=== PATIENT | female | born 1985 | race American Indian/Alaskan Native ===

== ENCOUNTER 2017-10-29 20:51 | Emergency (ER) | payer MEDICAID, OTHER ==
[2017-10-29 20:52] VITALS: BMI 25.4
[2017-10-29] MEDS ORDERED: Sodium Chloride 0.9% 1,000 ML IV ONE (21:19)
--- NOTE | 2017-10-29 22:46 | C.PDOC ---
History Of Present Illness <Soo Ventura - Last Filed: 10/29/17 22:55> <Nataliia Martinez - Last Filed: 10/29/17 23:53> 31 yo female c/o headache and facial pain for 3 days. Pain is described as pressure around her eyes and radiating to her ears. Pt states that two days ago she was evaluated in [facility] and diagnosed with sinusitis. She was treated with fioricet and Augmentin but the symptoms persist prompting ED visit. Notes she had a fever two days ago, none has returned. (+) photophobia. Admits to h/o migraines, last migraine three years ago. Denies weakness, changes in sensation , vomiting, neck pain, URI symptoms or rash. (Soo Ventura) History Per: Patient History/Exam Limitations: no limitations Onset/Duration Of Symptoms: Days Current Symptoms Are (Timing): Still Present <Soo Ventura - Last Filed: 10/29/17 22:55> <Nataliia Martinez - Last Filed: 10/29/17 23:53> Time Seen by Provider: 10/29/17 21:12 Chief Complaint (Nursing): ENT Problem Past Medical History - Medical History PMH: Gastritis, HTN Family History: States: Hypertension - Social History Hx Tobacco Use: Yes Hx Alcohol Use: Yes Hx Substance Use: No - Immunization History Hx Tetanus Toxoid Vaccination: No Hx Influenza Vaccination: No Hx Pneumococcal Vaccination: No <Soo Ventura - Last Filed: 10/29/17 22:55> Vital Signs: Last Vital Signs Temp 99.8 F H 10/29/17 21:04 Pulse 96 H 10/29/17 21:04 Resp 20 10/29/17 21:04 BP 123/80 10/29/17 21:04 Pulse Ox 100 10/29/17 22:55 - [facility] Procedures INJECT/INFUSE NEC (10/29/14) Review Of Systems Except As Marked, All Systems Reviewed And Found Negative. Constitutional: Positive for: Fever ENT: Positive for: Ear Pain Neurological: Positive for: Headache <Soo Ventura - Last Filed: 10/29/17 22:55> Physical Exam - Physical Exam Appears: Well, Non-toxic, No Acute Distress Skin: Normal Color, Warm, Dry Head: Atraumatic, Normacephalic Eye(s): bilateral: Normal Inspection, PERRL, EOMI Ear(s): Bilateral: Normal Nose: Normal Oral Mucosa: Moist Throat: Normal, No Erythema, No Exudate Neck: Normal, Normal ROM, Supple ((-) brudzinski's sign ) Chest: Symmetrical Cardiovascular: Rhythm Regular Respiratory: Normal Breath Sounds, No Accessory Muscle Use Gastrointestinal/Abdominal: Normal Exam Back: Normal Inspection Extremity: Normal ROM Neurological/Psych: Oriented x3, Normal Speech, Normal Cognition, Normal Cranial Nerves (2-12 intact) Gait: Steady <Soo Ventura - Last Filed: 10/29/17 22:55> ED Course And Treatment O2 Sat by Pulse Oximetry: 100 Progress Note: Toradol and Reglan ordered. Case endorsed to Dr Martinez pending CT results and re-evaluation. <Soo Ventura - Last Filed: 10/29/17 22:55> - CT Scan/US CT head Other Rad Studies (CT/US): Read By Radiologist, Radiology Report Reviewed CT/US Interpretation: IMPRESSION: No acute intracranial abnormality Reassessment Condition: Improved <Nataliia Martinez - Last Filed: 10/29/17 23:53> Disposition - Disposition Disposition Time: 22:55 <Soo Ventura - Last Filed: 10/29/17 22:55> Counseled Patient/Family Regarding: Studies Performed, Diagnosis, Need For Followup, Rx Given - Disposition Disposition Time: 23:50 <Nataliia Martinez - Last Filed: 10/29/17 23:53> - Disposition Referrals: Allen Bernabe MD [Medical Doctor] - Disposition: HOME/ ROUTINE Condition: STABLE Additional Instructions: Follow up with your doctor this week for further evaluation and treatment. Return to the ER if you develop vomiting, weakness, numbness, worsening of symptoms or if you have any other concerns. Prescriptions: DiphenhydrAMINE [Benadryl] 50 mg PO HS PRN #30 cap PRN Reason: Insomnia Naproxen [Naprosyn] 1 tab PO BID PRN #20 tab PRN Reason: Pain Instructions: Headache, Adult (DC) Forms: [employer] (Lao) - Clinical Impression Clinical Impression: Headache
--- NOTE | 2017-10-29 23:38 | CT ---
EXAM: CT Head Without Intravenous Contrast EXAM DATE/TIME: 10/29/2017 9:19 PM CLINICAL HISTORY: 31 years old, female; Condition or disease; Headache; Headache not specified; Additional info: Pain TECHNIQUE: Axial computed tomography images of the head/brain without intravenous contrast. All CT scans at this facility use one or more dose reduction techniques, viz.: automated exposure control; ma/kV adjustment per patient size (including targeted exams where dose is matched to indication; i.e. head); or iterative reconstruction technique. COMPARISON: There are no prior studies for comparison. FINDINGS: Brain ventricles: Ventricles are normal in size and configuration. There is no midline shift. There are no intra-axial or extra-axial mass lesions or areas of hemorrhage. There are no abnormal fluid collections. Moore-white differentiation is maintained. Bones/joints: Bones: Cranial vault is intact. Soft tissues: unremarkable Sinuses: There is no acute sinusitis. Ears and mastoids: Middle ears and mastoids are unremarkable Orbits: Orbital contents are unremarkable. IMPRESSION: No acute intracranial abnormality
[2017-10-30 00:09] VITALS: BP 110/70; PULSE 80; RESP 14; TEMP 98; O2SAT 98
== END 2017-10-30 00:08 | disposition home or self-care (01) ==
LOC: C.ER 20:51
DX: R51 Headache (principal)
CPT/HCPCS: 70450; 96374; 96375; 99284; J1885; J2765; J7040